=== PATIENT | male | born 1950 | race Caucasian/White ===

== ENCOUNTER → 2020-08-11 | Outpatient (CLI) | payer BC ==
[~2020-08-11] MED LIST: ASA81BEC PO; OIL OF OREGAN1500 MG PO; OMEPRAZOLE40 MG PO
--- NOTE | 2020-08-11 17:36 | CARDNUC ---
[place] [address] CARDIAC NUCLEAR IMAGING REPORT Name: MARCE AUSTIN Ivan Room: [facility]#: [id number] Admission: 08/11/20 Attend Phys: SivakumarAndrea Elaine, Discharge: Date of : 52 Date of Service: 08/11/20 1735 Report #: [id number] THIS REPORT FOR: cc: Adelina Flower MD, K. Gay MD Liston, Michael J. MD [facility] ~ APPROVED REPORT Study performed: 08/11/2020 14:14:05 Exam: Nuclear Stress Test Indication: Dyspnea, Chest pain Patient Location: Out-Patient Stress Tech: Gina Montgomery Stress Nurse: Radha Lucas RN Ht: 6 ft 0 in Wt: 192 lbs BSA: 2.09 m2 BMI: 26.03 Medical History Medical History: Hyperlipidemia Medications: aspirin 81 Allergies: penicillin Cardiac Risk Factors: Age, Hyperlipidemia, FHX of CAD, Past Smoker Exercise History: Physically active Stress Test Details Stress Test: Exercise stress testing was performed using a [place] protocol. HR Resting HR: 74 bpm Max Heart Rate (APMHR): 151 bpm Max HR Achieved: 145 bpm Target HR (85% APMHR): 128 bpm % of APMHR: 96 Recovery HR: 99 bpm BP Resting BP: 153/80 mmHg Max BP: 205/67 mmHg BP response to stress: Abnormal hypertensive response to stress. ECG Resting ECG: [place] [address] CARDIAC NUCLEAR IMAGING REPORT Name: MARCE AUSTIN Room: [facility]#: [id number] Admission: 08/11/20 Attend Phys: Tammi Elaine, Discharge: Date of : 52 Date of Service: 08/11/20 1735 Report #: [id number] Stress ECG: Sinus Tachycardia ST Change: Horizontal ST depression Maximum ST Deviation: 1.5 mm Arrhythmia: None Recovery ECG: Sinus Rhythm Recovery ST Change: Horizontal ST depression Recovery ST Deviation: 1.5 mm Recovery Arrhythmia: None Clinical Reason for Termination: Dyspnea, Fatigue Exercise duration: 7 min sec Exercise capacity: 8.59 METs Overall Exercise Capacity for Age: Normal Functional Aerobic Impairment 93% The patient tolerated standard risk protocol exercise without significant cardiac symptoms. Stress ECG Conclusion Baseline twelve-lead EKG shows sinus rhythm without significant ST segment depression. EKGs obtained during and post exercise show sinus rhythm and sinus tachycardia with up to 1-1/2 mm horizontal to slightly downsloping ST segment depression in the inferior and inferolateral leads that persist into recovery. There were no stress-induced arrhythmias. NM EXAM: Myocardial Perfusion REST/STRESS Resting Data Rest SPECT myocardial perfusion imaging was performed in supine position 30 minutes following the intravenous injection of 10.6 mCi of Tc-99m Sestamibi. Time of rest injection: 1245 The images were gated to evaluate regional wall motion and calculate left ventricular ejection fraction. Administration Route: IV Administration Site: Right Arm Exercise Stress At peak stress, the patient was injected intravenously with 36.0mCi of Tc-99m Sestamibi. Time of stress injection: 1430 Administration Route: IV Administration Site: Right Arm Heart Rate at time of stress injection: 145 bpm. Patient continued to exercise for 1 minute([place] [address] CARDIAC NUCLEAR IMAGING REPORT Name: MARCE AUSTIN Room: [facility]#: [id number] Admission: 08/11/20 Attend Phys: Tammi Elaine, Discharge: Date of : 52 Date of Service: 08/11/20 1735 Report #: [id number] Gated Stress SPECT was performed 30 minutes after stress injection. The images were gated to evaluate regional wall motion and calculate left ventricular ejection fraction. Prone imaging was performed. Study Quality Study: Good Artifact: No artifact Study Data At rest, the left ventricular ejection fraction was 65%.. Post stress, the left ventricular ejection was 76%.. TID = 0.73. Perfusion Perfusion images obtained in the supine position at rest and post exercise stress show a moderate region of photopenia in the basal to mid inferolateral wall that resolves completely with post stress prone imaging suggesting diaphragmatic attenuation artifact. There were no other fixed or reversible defects identified. Wall Motion Normal left ventricular wall motion. Nuclear Conclusion ECG Findings: positive for ischemia Clinical Findings: negative for ischemia Nuclear Findings: negative for ischemia Exercise Capacity: normal Left Ventricular Function: normal Perfusion images show no defect to suggest infarct or ischemia. Left ventricular systolic function is normal on gated studies. Findings of ST segment depression on the exercise electrocardiogram likely represent a false positive and may be due to hypertensive response to exercise. This is not a high risk study. <Conclusion> Baseline twelve-lead EKG shows sinus rhythm without significant ST segment depression. EKGs obtained during and post exercise show sinus rhythm and sinus tachycardia with up to 1-1/2 mm horizontal to slightly downsloping ST segment depression in [place] [address] CARDIAC NUCLEAR IMAGING REPORT Name: KISHANMARCE Ivan Room: [facility]#: [id number] Admission: 08/11/20 Attend Phys: Tammi Austin Chele, Discharge: Date of : 52 Date of Service: 08/11/201734 Report #: [id number] inferolateral leads that persist into recovery. There were no stress-induced arrhythmias. <ELECTRONICALLY SIGNED> By: Wilfredo Leon MD, [facility] 08/11/201734 34 1735 Wilfredo Leon MD, FACC /INF
== END ==
LOC: M.NUC 08:00 → M.CRD 08:00 → M.NUC 12:17
PROVIDERS: ATTEND Internal Medicine
DX: R06.00 Dyspnea, unspecified (principal); R53.83 Other fatigue; E78.2 Mixed hyperlipidemia; M79.602 Pain in left arm

== ENCOUNTER → 2020-08-21 | Outpatient (CLI) | payer BC ==
[2020-08-21 09:00] LABS: CREATININE 1.1 mg/dL (0.6-1.3)
== END ==
LOC: M.LAB 08:30 → M.CT 09:30
PROVIDERS: ATTEND Internal Medicine
DX: I65.22 Occlusion and stenosis of left carotid artery (principal); R94.30 Abnormal result of cardiovascular function study, unspecified

== ENCOUNTER 2020-08-30 12:33 | Day surgery (SDC) | payer BC ==
[~2020-08-30] VITALS: Ht 185.4 cm; Wt 86.2 kg
[2020-08-30] VITALS (8 sets, daily range): BP systolic 140–166; BP diastolic 70–89
[2020-08-30 09:38] LABS: HEMATOCRIT 44.5 % (42.0-52.0); HEMOGLOBIN 14.9 gm/dL (14.0-18.0); MCH 29.5 pg (26.0-34.0); MCHC 33.4 g/dL (28.0-37.0); MCV 88.3 fL (80.0-100.0); MPV 9.4 fl. (7.2-11.1); RBC 5.04 mil/uL (4.50-6.00); RDW-CV 13.7 % (10.5-14.5); WBC 6.1 thou/uL (4.0-11.0)
[2020-08-30 09:47] LABS: ANION GAP 6 mmol/L (7-16); BUN 15 mg/dL (7-18); CALCIUM 9.2 mg/dL (8.5-10.1); CHLORIDE 103 mmol/L (98-107); CO2 31 mmol/L (21-32); CREATININE 1.2 mg/dL (0.6-1.3); GLUCOSE 94 mg/dL (70-99); POTASSIUM 4.5 mmol/L (3.5-5.1); SODIUM 140 mmol/L (136-145)
[2020-08-30 09:50] LABS: APTT 26.8 Seconds (25.0-31.3); INR 1.1; PROTIME 11.2 Seconds (9.20-11.50)
[2020-08-30 09:51] LABS: ALBUMIN 3.7 g/dL (3.4-5.0); ALKALINE PHOSPHATASE 105 U/L (46-116); CHOLESTEROL 152 mg/dL (<200); HDL CHOLESTEROL 42 mg/dL (>40); LDL CHOLESTEROL 98 mg/dL (<100); SGOT 20 U/L (15-37); SGPT 32 U/L (30-65); TC:HDL 3.6 Ratio (Not establshd); TOTAL BILIRUBIN 0.5 mg/dL (<0.1-1.0); TOTAL PROTEIN 7.2 g/dL (6.4-8.2); TRIGLYCERIDE 61 mg/dL (<150); VLDL 12 mg/dL (<40)
[2020-08-30 09:52] LABS: SERUM ASSESSMENT Clear
--- NOTE | 2020-08-30 14:20 | EKG ---
[place] [address] ELECTROCARDIOGRAM REPORT Name: KISHANMARCE Ivan Room: [address]#: [id number] Admission: 08/30/20 Attend Phys: Stephania Osullivan Discharge: Date of : 52 Date of Service: 08/30/20 1015 Report #: [id number] THIS REPORT FOR: //name// [facility] Test Date: 2020-08-30 Test Time: 10:15:55 Pat Name: MARCE HOLLEY Department: Room: Gender: M Manager Audio: : 1950 Requested By: Pedro Luis Sanchez Order Number: [id number] Kenny MD: Pedro Luis Sanchez Measurements Intervals [place] Rate: 60 P: 65 NH: 161 QRS: -6 QRSD: 83 T: 59 QT: 387 QTc: 387 Interpretive Statements Sinus rhythm No previous ECG available for comparison Electronically Signed On 08-30-2020 14:20:33 [employer] by Pedro Luis Sanchez [email or web address] <ELECTRONICALLY SIGNED> By: Pedro Luis Sanchez MD, LOCATED [facility]IN [facility] 08/30/20 1420 1015 1015 Pedro Luis Sanchez MD, FACC /EPI
--- NOTE | 2020-08-30 15:16 | CARD ---
[address] [address] CARDIAC CATH REPORT Name: MARCE HOLLEY Room: [address]#: [id number] Admission: 08/30/20 Attend Phys: Pedro Luis Sanchez MD, Discharge: Date of : 52 Report #: [id number] THIS REPORT FOR: cc: Adelina Flower MD, K. Gay MD ~ Pedro Luis Sanchez MD [facility] APPROVED REPORT Study performed: 08/30/2020 11:19:04 Patient Details Patient Status: Out-Patient Room #: The patient is a 70 year-old male Event Personnel Pedro Luis Sanchez Hot Dip Galvanizer, Arlene Campo RN Monitor, Aguila Das Scrub, Cristiano Morris RN Circulating Nurse Procedures Performed Left Heart Cath w/or w/o Coronaries [id number] [facility] Hemostasis w/ Mynx Indication Dyspnea, Abnormal CT angiogram Risk Factors Hypercholesterolemia Admission/Lab Medications/Medications given during procedure Midazolam (Versed) IV 1 mg, Fentanyl IV 25 mcg Procedure Narrative The patient was brought electively to the Cardiac Catheterization Laboratory and was prepped and draped in a sterile manner. The right femoral was infiltrated with 2% Lidocaine subcutaneous anesthesia. A 6 Fr [place] sheath was inserted into the right femoral artery. Coronary angiography was performed using coronary diagnostic catheters. The right coronary system was accessed and visualized with a Diagnostic JR4 6Fr catheter. The left coronary system was accessed and visualized with a Diagnostic JL4 6Fr catheter. The left ventricle was accessed and visualized with a Diagnostic Pigatil 6Fr catheter. Left ventricular/Aortic Valve gradient assessed via catheter pullback. Closure device was deployed with a 6 [place] [address] CARDIAC CATH REPORT Name: MARCE HOLLEY Room: [address]#: [id number] Admission: 08/30/20 Attend Phys: Pedro Luis Sanchez MD, Discharge: Date of : 52 Report #: [id number] tolerated the procedure well and there were no complications associated with the procedure. There was no hematoma. Intraoperative Conscious Sedation Sedation start time: 1150 Case end Time: 1219 Fentanyl 25 mcg Versed 1 mg Fluoro Time: 2.7 minutes Dose: DAP 51497 cGycm2 402.35 mGy Contrast Type and Amount: Visipaque 85 ml Diagnostic Cath Left Main 0% narrowing LAD 75% heavily calcified proximalmid LAD stenosis with 70% narrowing at the juncture of the mid and distal LAD Circumflex Large dominant vessel with 90% proximal stenosis 40% distal narrowing Right Coronary Small vessel with 90% mid vessel narrowing and one small terminal branch to the septum Left Ventriculography The left ventricle is normal in size with normal contractility. The left ventricular ejection fraction is estimated to be 65%. Left ventricular wall motion abnormalities are not present. There is no mitral insufficiency. Hemodynamics The aortic pressure is 129/63 mmHg with a mean of 86 mmHg. The left ventricular pressure is 127/0 mmHg with a mean of mmHg. The left ventricular end diastolic pressure is 9 mmHg. There was no gradient across the aortic valve upon pullback. Conclusion 1. Severe multivessel coronary artery disease characterized by the following: A 75% heavily calcified proximalmid LAD stenosis with 70% stenosis at the junction between the mid and distal portions of the LAD B 90% proximal circumflex stenosis with 40% distal narrowing, this being a dominant vessel C small right coronary artery with 90% mid vessel narrowing and one [place] [address] CARDIAC CATH REPORT Name: MARCE HOLLEY Room: [address]#: [id number] Admission: 08/30/20 Attend Phys: Pedro Luis Sanchez MD, Discharge: Date of : 52 Report #: [id number] 2. Normal left ventricular systolic function, estimated ejection fraction being 65% 3. Normal left-sided hemodynamic study Recommendations CABG Diagnostic Cath Approved by: Pedro Luis Sanchez MD Date/Time: 08/30/2020 15:15:15 <ELECTRONICALLY SIGNED> By: Pedro Luis Sanchez MD, [facility] 08/30/20 1516 1516 1516Jocece Sanchez MD, FACC /INF
== END 2020-08-30 14:00 | disposition home or self-care (01) ==
LOC: M.CL 12:33 → M.TBA-CV 12:33 → M.CL 14:00
PROVIDERS: ATTEND Internal Medicine
DX: R06.00 Dyspnea, unspecified (principal); I25.10 Atherosclerotic heart disease of native coronary artery without angina pectoris; R93.1 Abnormal findings on diagnostic imaging of heart and coronary circulation; E78.00 Pure hypercholesterolemia, unspecified; R94.39 Abnormal result of other cardiovascular function study; Z79.899 Other long term (current) drug therapy; Z98.890 Other specified postprocedural states; Z20.822 Contact with and (suspected) exposure to COVID-19; Z88.0 Allergy status to penicillin; Z79.82 Long term (current) use of aspirin